=== PATIENT | male | born 1935 | race Caucasian/White ===

== ENCOUNTER 2018-12-26 19:20 | Inpatient (IN) | payer MEDICARE, MEDICAID ==
[~2018-12-26] VITALS: Ht 162.6 cm; Wt 63.0 kg
[2018-12-27] MEDS ORDERED: MAG HYDROX/AL HYDROX/SIMETH 30 ML UDC PO PRN (02:00)
[2018-12-27] MEDS ORDERED: ZOLPIDEM TARTRATE 5 MG TABLET PO PRN (02:00)
[2018-12-27] MEDS ORDERED: MAGNESIUM HYDROXIDE 30 ML UDC PO PRN (02:00)
[2018-12-27] MEDS ORDERED: ACETAMINOPHEN 325 MG TABLET PO PRN (02:00)
--- NOTE | 2018-12-27 02:00 | NUR ---
GPS IOS PROGRAMMER NOTES: ADMITTED AN 83YO MALE FROM [facility] IN [facility] ON [address]150MHOLD FOR DANGER TO SELF. PER HOLD, PATIENT HAS BEEN VERBALIZING ON JINNY SUICIDAL IDEATION AND STATED HE WANTED TO KILL HIMSELF- WITH NO PLAN PROVIDED. PATIENT CONFIRMED THAT HE HAS BEEN EXPERIENCING ON GOING SUICIDAL THOUGHTS FOR SEVERAL DAYS AND IS BECOMING SEVERELY ANXIOUS AND DEPRESSED. PATIENT WILL BE UNDER THE CARE OF DR. MORSE AND RUDY, COLD PATCHER FOR [facility]. PATIENT WAS BROUGHT IN THE UNIT VIA GURNEY BY AMBULANCE STAFF. HE WAS THEN BROUGHT IN THE ROOM AND CHANGED TO A CLEAN PATIENT'S GOWN. UPON FACE TO FACE ASSESSMENT, PATIENT PRESENTS ALERT AND ORIENTED X3-4, APPEARS CALM, COOPERATIVE HOWEVER ADMITS TO BEING DEPRESSED AND WANTING TO KILL HIMSELF. WHEN ASKED OF THE PLAN, PATIENT UNABLE TO SPECIFY.PATIENT THEN MEETS CRITERIA FOR 5150 FOR DANGER TO SELF. BELONGINGS AND CONTRABAND CHECKED. PATIENT HAS BOTTLES OF MEDICATION, SAID MEDICATIONS REPORTED AND PLACED IN A BAG FOR PHARMACY KEEPING- THIS INCLUDES A BOTTLE OF LORAZEPAM 0.5 MG #14 PILLS ON COUNT. PATIENT'S UPPER AND LOWER DENTURES PLACED IN A CUP AT BEDSIDE. PATIENT ALSO HAS THE POSSESSION OF TWO EYEGLASSES AT BEDSIDE., WITH LABEL STICKERS ON IT. ORIENTATION TO UNIT, STAFF, DOCTORS, CARE PLANS AND ACTIVITIES DONE. Q15 MIN CHECKS INITIATED. CARE PLAN STARTED. PATIENT'S RIGHTS DISCUSSED, GUIDE TO PRESCRIPTIONS MEDICATIONS PROVIDED. TOILETRIES PROVIDED. ASKED PATIENT IF HE IS HUNGRY, PATIENT JUST REQUESTED FOR WATER- PROVIDED AT BEDSIDE. WOUND CARE CONSULT PLACED FOR REDNESS ON LEFT BIG TOE AND REDNESS ON LEFT HEEL. PATIENT REQUESTED FOR TYLENOL MEDICATION FOR MILD PAIN- GIVEN PRN MEDICATIONS. SAFETY AND FALL PRECAUTIONS OBSERVED. BED ALARM ACTIVATED. CALL RIBEIRO PROVIDED. WILL INFORM SON- REGARDING ADMISSION IN PHOTOENGRAVING HELPER. WILL COLLECT SPECIMEN FOR MRSA. WILL FOLLOW UP FOR MED RECON. WILL MONITOR PATIENT FOR MOOD, SAFETY AND BEHAVIOR.
[2018-12-27] MEDS ORDERED: AMLO10TA7 PO (02:13)
[2018-12-27] MEDS ORDERED: LORA0.5T PO (02:14)
[2018-12-27] MEDS ORDERED: DULO30CA2 PO (02:16)
[2018-12-27] MEDS ORDERED: PARO10TA86 PO (02:18)
[2018-12-27 02:30] VITALS: BP 160/83
[2018-12-27] MEDS ORDERED: LOSA100T31 PO (04:25)
[2018-12-27] MEDS ORDERED: OMEP40CA37 PO (04:25)
[2018-12-27] MEDS ORDERED: CLON0.1T PO (04:25)
[2018-12-27] MEDS ORDERED: METO25TA6 PO (04:25)
--- NOTE | 2018-12-27 05:46 | NUR ---
gps rn notes: patient noted to have difficulty walking, he has his own shoes with with plastic support as insert. scrap charger requested for a sitter for the patient as he is considered a high fall risk. none can be provided as of this time since the need came in late. will endorse to day shift staff.
[2018-12-27] MEDS: LORAZEPAM 0.5 MG TABLET PO PRN (05:52)
--- NOTE | 2018-12-27 05:57 | NUR ---
gps rn notes: in regards to patient's ambulation and safety reasons , nurse will wait for physical therapist's evaluation regarding ambulation and adl's. will endorse to day shift nurse. Addendum: 12/27/18 at 0601 by CHANDANA SPRINGER patient complained of being anxious. requested for ativan 0.5 mg po - given as ordered. will continue to monitor patient's anxiety level.
[2018-12-27 07:57] LABS: ALANINE AMINOTRANSFERASE 36 U/L (12-78); ALBUMIN 3.6 g/dL (3.4-5.0); ALKALINE PHOSPHATASE 97 U/L (46-116); ASPARTATE AMINOTRANSFERASE 24 U/L (15-37); BILIRUBIN,TOTAL 0.5 mg/dL (0.2-1.0); CALCIUM, SERUM 9.2 mg/dL (8.5-10.1); CARBON DIOXIDE 24 mmol/L (21-32); CHLORIDE 104 mmol/L (98-107); CREATININE 1.6 mg/dL (0.6-1.3); GLUCOSE 106 mg/dL (74-106); POTASSIUM 4.2 mmol/L (3.5-5.1); SODIUM SERUM 140 mmol/L (136-145); TOTAL PROTEIN, SERUM 7.2 g/dL (6.4-8.2); UREA NITROGEN, BLOOD 17 mg/dL (7-18)
[2018-12-27 08:00] VITALS: BP 148/90
[2018-12-27] MEDS: PANTOPRAZOLE 40 MG TABLET.DR PO SCH (09:57)
[2018-12-27] MEDS: LOSARTAN POTASSIUM 50 MG TABLET PO SCH (10:00)
--- NOTE | 2018-12-27 11:38 | NUR ---
WOUND CARE CONSULT: PT PRESENTS WITH AFO BRACE AND ORTHO SHOE TO LEFT LOWER LEG AND FOOT. PT PRESENTS WITH BLANCHABLE REDNESS TO LEFT HEEL AND GREAT TOE, NO TENDERNESS. HEMOSIDERIN STAINING NOTED TO LEFT LOWER LEG. PT IS AMBULATORY AND CONTINENT. WILL SEE PRN.
[2018-12-27] MEDS: VENLAFAXINE XR 37.5 MG CAP.SR.24H PO SCH (12:30)
[2018-12-27 16:00] VITALS: BP 187/99
[2018-12-27] MEDS: METOPROLOL TARTRATE 25 MG TABLET PO SCH (16:09)
[2018-12-27] MEDS: AMLODIPINE BESYLATE 10 MG TABLET PO SCH (16:09)
[2018-12-27] MEDS ORDERED: METOPROLOL TARTRATE 25 MG TABLET PO SCH (17:00)
[2018-12-27] MEDS: CLONIDINE HCL 0.1 MG TABLET PO SCH (17:23)
[2018-12-27 19:43] VITALS: BP 144/79
[2018-12-27] MEDS: QUETIAPINE FUMARATE 25 MG TABLET PO SCH (21:12)
[2018-12-28 07:13] LABS: BASOPHILS % (AUTO) 0.6 % (0.0-2.0); EOSINOPHILS % (AUTO) 3.7 % (0.0-6.0); HEMATOCRIT 35 % (39-51); HEMOGLOBIN 11.8 g/dL (13.5-17.5); LYMPHOCYTES # (AUTO) 1.8 /CMM (0.8-4.8); MEAN CORPUSCULAR HGB CONC 34 g/dl (31.0-36.0); MEAN CORPUSCULAR VOLUME 92 fL (80-96); MONOCYTES # (AUTO) 0.6 /CMM (0.1-1.30); MONOCYTES % (AUTO) 9.2 % (2.0-12.0); NEUTROPHILS # (AUTO) 3.7 /CMM (1.8-8.9); NEUTROPHILS % (AUTO) 58.5 % (43.0-81.0); PLATELET COUNT (AUTO) 166 /CMM (150-450); RED BLOOD CELL COUNT(AUTO) 3.83 MIL/uL (4.5-6.0); WHITE BLOOD COUNT (AUTO) 6.3 K/uL (4.3-11.0)
[2018-12-28 07:27] LABS: CHOLESTEROL 194 mg/dL (<200); CREATINE KINASE, TOTAL 223 U/L (39-308); HDL CHOLESTEROL 30 mg/dL (40-60); LDL 140 mg/dL (0-99); THYROID STIMULATING HORMONE 1.084 uIU/mL (0.358-3.74); TRIGLYCERIDES 118 mg/dL (30-150)
[2018-12-28 07:30] LABS: ALANINE AMINOTRANSFERASE 26 U/L (12-78); ALBUMIN 3.3 g/dL (3.4-5.0); ALKALINE PHOSPHATASE 86 U/L (46-116); ASPARTATE AMINOTRANSFERASE 27 U/L (15-37); BILIRUBIN,TOTAL 0.5 mg/dL (0.2-1.0); CALCIUM, SERUM 8.9 mg/dL (8.5-10.1); CARBON DIOXIDE 27 mmol/L (21-32); CHLORIDE 103 mmol/L (98-107); CREATININE 1.8 mg/dL (0.6-1.3); GLUCOSE 94 mg/dL (74-106); PHOSPHORUS 3.6 mg/dL (2.5-4.9); SODIUM SERUM 139 mmol/L (136-145); TOTAL PROTEIN, SERUM 6.6 g/dL (6.4-8.2); UREA NITROGEN, BLOOD 19 mg/dL (7-18)
[2018-12-28] MEDS: PANTOPRAZOLE 40 MG TABLET.DR PO SCH (07:57)
[2018-12-28 08:00] VITALS: BP 130/73
[2018-12-28] MEDS: METOPROLOL TARTRATE 25 MG TABLET PO SCH ×2 (08:00→17:10)
[2018-12-28] MEDS: VENLAFAXINE XR 37.5 MG CAP.SR.24H PO SCH (08:00)
[2018-12-28] MEDS: LOSARTAN POTASSIUM 50 MG TABLET PO SCH (08:01)
[2018-12-28] MEDS: AMLODIPINE BESYLATE 10 MG TABLET PO SCH (08:01)
[2018-12-28] MEDS ORDERED: DULOXETINE HCL 30 MG CAPSULE.DR PO SCH (09:00)
[2018-12-28] MEDS ORDERED: AMLODIPINE BESYLATE 10 MG TABLET PO SCH (09:00)
--- NOTE | 2018-12-28 10:17 | NUR ---
SW contacted pts son Kishore [phone] to discuss pts treatment plan and discharge plan. Pts son stated that pt will return home once stable for discharge and agrees with pts treatment and medications.
--- NOTE | 2018-12-28 12:01 | NUR ---
INITIAL DISCHARGE PLAN: Pt wishes to return home. Per son Kishore [phone] he wishes for pt to return home to [address] [place] [address]. SW will help form a safe and proper discharge in collaboration with .
[2018-12-28 16:00] VITALS: BP 151/89
[2018-12-28] MEDS: LORAZEPAM 0.5 MG TABLET PO PRN (16:04)
--- NOTE | 2018-12-28 16:05 | NUR ---
NURSING NOTE: PT IN THE HALLWAY, PACING, REQUESTING SOMETHING FOR ANXIETY, STATING "IM FEELING VERY NERVOUS AND ANXIOUS, I NEED SOMETHING TO HELP ME CALM DOWN". ADMINISTERED ATIVAN 0.5MG PO PER MD ORDER. VS: BP 151/89, HR 103. WILL CONTINUE TO MONITOR FOR SAFETY AND BEHAVIOR.
[2018-12-28] MEDS: CLONIDINE HCL 0.1 MG TABLET PO SCH (17:09)
[2018-12-28 20:11] VITALS: BP 109/55
[2018-12-28] MEDS: QUETIAPINE FUMARATE 25 MG TABLET PO SCH (22:17)
[2018-12-29 06:29] LABS: BASOPHILS # (AUTO) 0.1 /CMM (0.0-0.2); BASOPHILS % (AUTO) 1.8 % (0.0-2.0); EOSINOPHILS % (AUTO) 4.9 % (0.0-6.0); HEMATOCRIT 31 % (39-51); HEMOGLOBIN 10.6 g/dL (13.5-17.5); LYMPHOCYTES # (AUTO) 2.6 /CMM (0.8-4.8); LYMPHOCYTES % (AUTO) 41.9 % (20.0-44.0); MEAN CORPUSCULAR HGB CONC 34 g/dl (31.0-36.0); MEAN CORPUSCULAR VOLUME 92 fL (80-96); MONOCYTES # (AUTO) 0.6 /CMM (0.1-1.30); MONOCYTES % (AUTO) 9.6 % (2.0-12.0); NEUTROPHILS # (AUTO) 2.6 /CMM (1.8-8.9); NEUTROPHILS % (AUTO) 41.8 % (43.0-81.0); PLATELET COUNT (AUTO) 146 /CMM (150-450); RED BLOOD CELL COUNT(AUTO) 3.38 MIL/uL (4.5-6.0); WHITE BLOOD COUNT (AUTO) 6.1 K/uL (4.3-11.0)
[2018-12-29 06:42] LABS: ALANINE AMINOTRANSFERASE 36 U/L (12-78); ALBUMIN 3.1 g/dL (3.4-5.0); ALKALINE PHOSPHATASE 77 U/L (46-116); ASPARTATE AMINOTRANSFERASE 34 U/L (15-37); BILIRUBIN,TOTAL 0.5 mg/dL (0.2-1.0); CALCIUM, SERUM 8.5 mg/dL (8.5-10.1); CARBON DIOXIDE 26 mmol/L (21-32); CHLORIDE 104 mmol/L (98-107); GLUCOSE 88 mg/dL (74-106); MAGNESIUM 1.9 mg/dL (1.8-2.4); PHOSPHORUS 4.1 mg/dL (2.5-4.9); POTASSIUM 4.2 mmol/L (3.5-5.1); SODIUM SERUM 138 mmol/L (136-145); TOTAL PROTEIN, SERUM 6.1 g/dL (6.4-8.2); UREA NITROGEN, BLOOD 26 mg/dL (7-18)
[2018-12-29 08:00] VITALS: BP 126/70
[2018-12-29] MEDS: LOSARTAN POTASSIUM 50 MG TABLET PO SCH (08:35)
[2018-12-29] MEDS: PANTOPRAZOLE 40 MG TABLET.DR PO SCH (08:35)
[2018-12-29] MEDS: VENLAFAXINE XR 37.5 MG CAP.SR.24H PO SCH (08:35)
[2018-12-29] MEDS: AMLODIPINE BESYLATE 10 MG TABLET PO SCH (08:36)
[2018-12-29] MEDS: METOPROLOL TARTRATE 25 MG TABLET PO SCH ×2 (08:36→16:51)
--- NOTE | 2018-12-29 11:00 | NUR ---
GPS/RN-NOTES DR. LACEY SEEN THE PATIENT AND AWARE OF PATIENT LAB RESULTS WITH NNO.
[2018-12-29 12:14] LABS: CREATININE, URINE 26.8 MG/DL (30.0-125.0); URINE TOTAL PROTEIN 2.1 mg/dL (0-11.9)
[2018-12-29 12:15] LABS: APPEARANCE,URINE CLEAR (CLEAR); BILIRUBIN,URINE NEGATIVE (NEGATIVE); BLOOD, URINE NEGATIVE Ery/uL (NEGATIVE); KETONES,URINE NEGATIVE (NEGATIVE); LEUKOCYTE ESTERASE ,URINE TRACE (NEGATIVE); NITRITE, URINE NEGATIVE (NEGATIVE); PROTEIN,URINE NEGATIVE (NEGATIVE); UGLUCOSE NEGATIVE (NEGATIVE); UROBILINOGEN,URINE 0.2 EU/dL (0.2)
[2018-12-29 12:34] LABS: COLOR,URINE OTHER (YELLOW)
[2018-12-29 13:15] LABS: BACTERIA,URINE Few /HPF (None Seen); RBC,URINE NONE SEEN /HPF (0-2); SQUAMOUS EPITHELIAL CELL,UR Few /HPF (None Seen); WBC,URINE 0-2 /HPF (0-3)
[2018-12-29 13:20] LABS: EOSINOPHIL,URINE None Seen
--- NOTE | 2018-12-29 13:40 | NUR ---
ALANA contacted pts son Kishore [phone] to inform him pt is requesting he bring him new batteries for his hearing aids. Son stated hew is aware and that he would bring them tomorrow 12/30/18.
[2018-12-29] MEDS: LORAZEPAM 1 MG TABLET PO PRN (15:39)
--- NOTE | 2018-12-29 15:44 | NUR ---
GPS/RN-NOTES PATIENT REQUESTING FOR ATIVAN. STATED" I NEED MY ATIVAN FOR MY ANXIETY, I'M FEEL VERY ANXIOUS". ATIVAN 0.5MG P.O GIVEN PRN ORDER.WILL CONT. MONITORING FOR SAFETY AND BEHAVIOR.
[2018-12-29 16:10] VITALS: BP 138/70
--- NOTE | 2018-12-29 16:40 | NUR ---
GPS/RN-NOTES PATIENT LAYING IN BED AWAKE,ALERT ,CALM NO ACUTE DISTRESS NOTED.
[2018-12-29] MEDS: CLONIDINE HCL 0.1 MG TABLET PO SCH (17:05)
[2018-12-29 19:08] LABS: *SPE A/G RATIO 1.1 (0.7-1.7); *SPE ALBUMIN 3.2 g/dL (2.9-4.4); *SPE ALPHA-1-GLOBULIN 0.2 g/dL (0.0-0.4); *SPE ALPHA-2-GLOBULIN 0.5 g/dL (0.4-1.0); *SPE GLOBULIN, TOTAL 2.8 g/dL (2.2-3.9); *SPE M-SPIKE Not Observed g/dL (Not Observed); PTH, INTACT 72 pg/mL (15-65)
[2018-12-29 20:38] VITALS: BP 148/74
[2018-12-29] MEDS: QUETIAPINE FUMARATE 25 MG TABLET PO SCH (21:26)
[2018-12-30 08:00] VITALS: BP 150/82
[2018-12-30] MEDS: VENLAFAXINE XR 37.5 MG CAP.SR.24H PO SCH (08:31)
[2018-12-30] MEDS: PANTOPRAZOLE 40 MG TABLET.DR PO SCH (08:31)
[2018-12-30] MEDS: METOPROLOL TARTRATE 25 MG TABLET PO SCH ×2 (08:32→16:39)
[2018-12-30] MEDS: AMLODIPINE BESYLATE 10 MG TABLET PO SCH (08:32)
[2018-12-30] MEDS: LORAZEPAM 1 MG TABLET PO PRN ×2 (11:08→17:45)
--- NOTE | 2018-12-30 15:20 | NUR ---
GROUP NOTE: SW prompted pt to attend group discussing the topic of discharge planning, pt refused to participate stating he was feeling very anxious and needed an Ativan.
[2018-12-30 16:00] VITALS: BP 143/80
[2018-12-30] MEDS: CLONIDINE HCL 0.1 MG TABLET PO SCH (17:17)
[2018-12-30] MEDS: TRIAMCINOLONE ACETONIDE 0.1% CR 15 GM TUBE TP SCH (17:17)
[2018-12-30 20:00] VITALS: BP 108/57
[2018-12-30] MEDS: QUETIAPINE FUMARATE 25 MG TABLET PO SCH (21:36)
[2018-12-31 07:33] LABS: BASOPHILS # (AUTO) 0.1 /CMM (0.0-0.2); EOSINOPHILS % (AUTO) 3.5 % (0.0-6.0); HEMATOCRIT 36 % (39-51); LYMPHOCYTES # (AUTO) 2.4 /CMM (0.8-4.8); LYMPHOCYTES % (AUTO) 38.2 % (20.0-44.0); MEAN CORPUSCULAR HGB CONC 33 g/dl (31.0-36.0); MEAN CORPUSCULAR VOLUME 93 fL (80-96); MONOCYTES # (AUTO) 0.6 /CMM (0.1-1.30); MONOCYTES % (AUTO) 9.3 % (2.0-12.0); PLATELET COUNT (AUTO) 157 /CMM (150-450); RED BLOOD CELL COUNT(AUTO) 3.89 MIL/uL (4.5-6.0); WHITE BLOOD COUNT (AUTO) 6.2 K/uL (4.3-11.0)
[2018-12-31 08:00] VITALS: BP 144/76
[2018-12-31 08:03] LABS: ALANINE AMINOTRANSFERASE 38 U/L (12-78); ALBUMIN 3.5 g/dL (3.4-5.0); ALKALINE PHOSPHATASE 86 U/L (46-116); ASPARTATE AMINOTRANSFERASE 24 U/L (15-37); BILIRUBIN,TOTAL 0.5 mg/dL (0.2-1.0); CALCIUM, SERUM 9.2 mg/dL (8.5-10.1); CARBON DIOXIDE 26 mmol/L (21-32); CHLORIDE 105 mmol/L (98-107); CREATININE 1.8 mg/dL (0.6-1.3); GLUCOSE 89 mg/dL (74-106); MAGNESIUM 1.9 mg/dL (1.8-2.4); PHOSPHORUS 3.9 mg/dL (2.5-4.9); POTASSIUM 4.1 mmol/L (3.5-5.1); SODIUM SERUM 141 mmol/L (136-145); UREA NITROGEN, BLOOD 24 mg/dL (7-18)
[2018-12-31] MEDS: PANTOPRAZOLE 40 MG TABLET.DR PO SCH (09:00)
[2018-12-31] MEDS: VENLAFAXINE XR 37.5 MG CAP.SR.24H PO SCH (09:00)
[2018-12-31] MEDS: AMLODIPINE BESYLATE 10 MG TABLET PO SCH (09:00)
[2018-12-31] MEDS: METOPROLOL TARTRATE 25 MG TABLET PO SCH ×2 (09:00→17:18)
[2018-12-31] MEDS: TRIAMCINOLONE ACETONIDE 0.1% CR 15 GM TUBE TP SCH ×2 (09:01→17:17)
--- NOTE | 2018-12-31 14:33 | NUR ---
GROUP NOTE: SW prompted pt to attend group discussing the topic of support systems, pt refused to participate stating he was feeling very anxious and depressed.
[2018-12-31 16:00] VITALS: BP 130/71
[2018-12-31] MEDS: CLONIDINE HCL 0.1 MG TABLET PO SCH (17:20)
[2018-12-31 20:00] VITALS: BP 134/70
[2018-12-31 20:27] VITALS: BP 134/70
[2018-12-31] MEDS: QUETIAPINE FUMARATE 25 MG TABLET PO SCH (21:29)
[2019-01-01 08:00] VITALS: BP 109/73
[2019-01-01] MEDS: VENLAFAXINE XR 37.5 MG CAP.SR.24H PO SCH (08:19)
[2019-01-01] MEDS: AMLODIPINE BESYLATE 10 MG TABLET PO SCH (08:19)
[2019-01-01] MEDS: PANTOPRAZOLE 40 MG TABLET.DR PO SCH (08:19)
[2019-01-01] MEDS: METOPROLOL TARTRATE 25 MG TABLET PO SCH ×2 (08:19→17:53)
[2019-01-01] MEDS: TRIAMCINOLONE ACETONIDE 0.1% CR 15 GM TUBE TP SCH ×2 (08:22→17:54)
[2019-01-01] MEDS: LORAZEPAM 1 MG TABLET PO PRN (08:42)
[2019-01-01] MEDS ORDERED: BISACODYL SUPP (10 MG) 10 MG/SUPP.RECT SUPP.RECT RC PRN (13:00)
[2019-01-01 16:16] VITALS: BP_SYST 107; BP_SYST 138; BP_DIAS 57; BP_DIAS 65
[2019-01-01] MEDS: DOCUSATE SODIUM 250 MG CAPSULE PO SCH (17:52)
[2019-01-01] MEDS: CLONIDINE HCL 0.1 MG TABLET PO SCH (17:53)
[2019-01-01 20:00] VITALS: BP 121/68
[2019-01-01] MEDS: QUETIAPINE FUMARATE 25 MG TABLET PO SCH (21:54)
[2019-01-02 08:00] VITALS: BP 138/62
[2019-01-02] MEDS: PANTOPRAZOLE 40 MG TABLET.DR PO SCH (08:31)
[2019-01-02] MEDS: VENLAFAXINE XR 37.5 MG CAP.SR.24H PO SCH (08:32)
[2019-01-02] MEDS: DOCUSATE SODIUM 250 MG CAPSULE PO SCH ×2 (08:32→17:19)
[2019-01-02] MEDS: TRIAMCINOLONE ACETONIDE 0.1% CR 15 GM TUBE TP SCH ×2 (08:33→17:21)
[2019-01-02] MEDS: METOPROLOL TARTRATE 25 MG TABLET PO SCH ×2 (08:33→17:20)
[2019-01-02] MEDS: AMLODIPINE BESYLATE 10 MG TABLET PO SCH (08:33)
[2019-01-02] MEDS: LORAZEPAM 1 MG TABLET PO PRN (15:19)
[2019-01-02 16:07] VITALS: BP 141/78
[2019-01-02] MEDS: CLONIDINE HCL 0.1 MG TABLET PO SCH (17:20)
[2019-01-02 20:13] VITALS: BP 119/71
[2019-01-02] MEDS: QUETIAPINE FUMARATE 25 MG TABLET PO SCH (21:22)
[2019-01-03 06:46] LABS: BASOPHILS % (AUTO) 0.9 % (0.0-2.0); EOSINOPHILS % (AUTO) 4.9 % (0.0-6.0); HEMATOCRIT 36 % (39-51); LYMPHOCYTES # (AUTO) 1.7 /CMM (0.8-4.8); LYMPHOCYTES % (AUTO) 32.5 % (20.0-44.0); MEAN CORPUSCULAR HGB CONC 33 g/dl (31.0-36.0); MEAN CORPUSCULAR VOLUME 92 fL (80-96); MONOCYTES # (AUTO) 0.5 /CMM (0.1-1.30); MONOCYTES % (AUTO) 9.6 % (2.0-12.0); NEUTROPHILS # (AUTO) 2.7 /CMM (1.8-8.9); NEUTROPHILS % (AUTO) 52.1 % (43.0-81.0); PLATELET COUNT (AUTO) 165 /CMM (150-450); RED BLOOD CELL COUNT(AUTO) 3.92 MIL/uL (4.5-6.0); WHITE BLOOD COUNT (AUTO) 5.2 K/uL (4.3-11.0)
[2019-01-03 06:55] LABS: CALCIUM, SERUM 9.1 mg/dL (8.5-10.1); CARBON DIOXIDE 25 mmol/L (21-32); CHLORIDE 102 mmol/L (98-107); CREATININE 1.8 mg/dL (0.6-1.3); GLUCOSE 95 mg/dL (74-106); MAGNESIUM 2.1 mg/dL (1.8-2.4); PHOSPHORUS 4.4 mg/dL (2.5-4.9); POTASSIUM 4.3 mmol/L (3.5-5.1); SODIUM SERUM 137 mmol/L (136-145); UREA NITROGEN, BLOOD 30 mg/dL (7-18)
[2019-01-03 08:00] VITALS: BP 145/66
[2019-01-03] MEDS: DOCUSATE SODIUM 250 MG CAPSULE PO SCH ×2 (08:35→16:30)
[2019-01-03] MEDS: PANTOPRAZOLE 40 MG TABLET.DR PO SCH (08:35)
[2019-01-03] MEDS: VENLAFAXINE XR 37.5 MG CAP.SR.24H PO SCH (08:35)
[2019-01-03] MEDS: TRIAMCINOLONE ACETONIDE 0.1% CR 15 GM TUBE TP SCH ×2 (08:36→16:36)
[2019-01-03] MEDS: AMLODIPINE BESYLATE 10 MG TABLET PO SCH (08:36)
[2019-01-03] MEDS: METOPROLOL TARTRATE 25 MG TABLET PO SCH ×2 (08:36→16:30)
[2019-01-03] MEDS: busPIRone 5 MG TABLET PO SCH ×3 (10:30→16:30)
--- NOTE | 2019-01-03 15:57 | NUR ---
GROUP NOTE: SW prompted pt to attend group discussing the topic of personal strengths and coping skills, but pt unable to participate in group because he was going to shower.
[2019-01-03 16:00] VITALS: BP 114/71
[2019-01-03] MEDS: CLONIDINE HCL 0.1 MG TABLET PO SCH (17:09)
[2019-01-03 19:59] VITALS: BP 142/74
[2019-01-03] MEDS: QUETIAPINE FUMARATE 25 MG TABLET PO SCH (21:23)
[2019-01-04 08:00] VITALS: BP 142/68
[2019-01-04] MEDS: DOCUSATE SODIUM 250 MG CAPSULE PO SCH ×2 (09:05→16:59)
[2019-01-04] MEDS: AMLODIPINE BESYLATE 10 MG TABLET PO SCH (09:05)
[2019-01-04] MEDS: busPIRone 5 MG TABLET PO SCH ×3 (09:05→17:00)
[2019-01-04] MEDS: PANTOPRAZOLE 40 MG TABLET.DR PO SCH (09:05)
[2019-01-04] MEDS: VENLAFAXINE XR 37.5 MG CAP.SR.24H PO SCH (09:06)
[2019-01-04] MEDS: METOPROLOL TARTRATE 25 MG TABLET PO SCH ×2 (09:06→17:00)
[2019-01-04] MEDS: TRIAMCINOLONE ACETONIDE 0.1% CR 15 GM TUBE TP SCH ×2 (09:08→16:59)
--- NOTE | 2019-01-04 09:58 | NUR ---
ALANA contacted pts son Kishore [phone] to discuss pts discharge for Thursday01/08/19, son stated that he will be picking pt up at 12:00 and transporting home. Son agrees with discharge and states he feels pt is doing much better and is ready to return home.
--- NOTE | 2019-01-04 10:45 | NUR ---
ALANA received a call from pts son Kishore [phone] requesting discharge for Thursday01/07/19 at 11:00am instead of Thursday, ALANA informed him that she would notify psychiatrist but presumed there would not be a problem.
--- NOTE | 2019-01-04 15:35 | NUR ---
GROUP NOTE: SW prompted pt to attend group on 01/04/19 at 2:00pm discussing the topic of goal setting for while they are in the hospital and after discharge, but pt was sleeping and not easily aroused.
[2019-01-04 16:00] VITALS: BP 150/82
--- NOTE | 2019-01-04 17:30 | NUR ---
STATES ANXIOUS AND WANTS ATIVAN,BUT STATES RELAXED AFTER BUSPAR.
[2019-01-04] MEDS: CLONIDINE HCL 0.1 MG TABLET PO SCH (18:20)
[2019-01-04 20:24] VITALS: BP 153/78
[2019-01-04] MEDS: QUETIAPINE FUMARATE 25 MG TABLET PO SCH (21:04)
[2019-01-05] MEDS: LORAZEPAM 1 MG TABLET PO PRN (01:57)
[2019-01-05 08:00] VITALS: BP 153/84
[2019-01-05] MEDS: PANTOPRAZOLE 40 MG TABLET.DR PO SCH (08:54)
[2019-01-05] MEDS: METOPROLOL TARTRATE 25 MG TABLET PO SCH ×2 (08:54→17:58)
[2019-01-05] MEDS: VENLAFAXINE XR 37.5 MG CAP.SR.24H PO SCH (08:54)
[2019-01-05] MEDS: busPIRone 5 MG TABLET PO SCH ×3 (08:55→17:59)
[2019-01-05] MEDS: TRIAMCINOLONE ACETONIDE 0.1% CR 15 GM TUBE TP SCH ×2 (08:55→17:59)
[2019-01-05] MEDS: DOCUSATE SODIUM 250 MG CAPSULE PO SCH ×2 (08:55→17:59)
[2019-01-05] MEDS: AMLODIPINE BESYLATE 10 MG TABLET PO SCH (08:55)
--- NOTE | 2019-01-05 09:20 | NUR ---
SW received a call from pts son Kishore [phone] confirming pts discharge on 01/07/19 at 11:00am.
--- NOTE | 2019-01-05 13:34 | NUR ---
GROUP NOTE: SW prompted pt to attend group on 01/05/19 at 12:30pm discussing stress management techniques for while they are in the hospital and after discharge, but pt was sleeping and not easily aroused.
[2019-01-05 16:53] VITALS: BP 127/69
--- NOTE | 2019-01-05 18:30 | NUR ---
BP ELEVATED IN ARACELY.METOPROLOL AND CATAPRES GIVEN.
[2019-01-05] MEDS: CLONIDINE HCL 0.1 MG TABLET PO SCH (19:11)
[2019-01-05 20:00] VITALS: BP 139/73
[2019-01-05] MEDS: QUETIAPINE FUMARATE 25 MG TABLET PO SCH (21:05)
[2019-01-06 08:00] VITALS: BP 149/75
[2019-01-06] MEDS: METOPROLOL TARTRATE 25 MG TABLET PO SCH ×2 (09:05→17:43)
[2019-01-06] MEDS: busPIRone 5 MG TABLET PO SCH ×3 (09:05→17:42)
[2019-01-06] MEDS: VENLAFAXINE XR 37.5 MG CAP.SR.24H PO SCH (09:05)
[2019-01-06] MEDS: PANTOPRAZOLE 40 MG TABLET.DR PO SCH (09:06)
[2019-01-06] MEDS: AMLODIPINE BESYLATE 10 MG TABLET PO SCH (09:06)
[2019-01-06] MEDS: DOCUSATE SODIUM 250 MG CAPSULE PO SCH ×2 (09:06→17:42)
[2019-01-06] MEDS: TRIAMCINOLONE ACETONIDE 0.1% CR 15 GM TUBE TP SCH ×2 (09:07→17:42)
[2019-01-06] MEDS: LORAZEPAM 1 MG TABLET PO PRN (12:53)
[2019-01-06 16:00] VITALS: BP 152/77
[2019-01-06] MEDS: CLONIDINE HCL 0.1 MG TABLET PO SCH (17:45)
[2019-01-06 20:29] VITALS: BP 124/67
[2019-01-06] MEDS: QUETIAPINE FUMARATE 25 MG TABLET PO SCH (21:11)
[2019-01-07 08:00] VITALS: BP 123/61
--- NOTE | 2019-01-07 08:00 | NUR ---
RECEIVED PATIENT RESTING IN BED, ALERT X3, NO APPARENT DISTRESS NOTED. PATIENT AMBULATORY WITH WALKER. PLEASANT WITH STAFF.COMPLIANT WITH DAILY MEDICATIONS.NEEDS ATTENDED AND ANTICIPATED.WILL CONTINUE MONITORING Q15 MINS. FOR SAFETY AND BEHAVIOR.
--- NOTE | 2019-01-07 08:29 | NUR ---
DISCHARGE NOTE: Pt will be discharging at 11:00am via private vehicle [id number] [place] [address]. Pts son Kishore [phone] will be picking pt up and transporting home. Pts mood is euthymic with congruent affect. Pt denied visual/auditory hallucinations and denied suicidal/homicidal ideation. Pt has a follow up appointment with Psychiatrist: Dr. Jose L Watson Address: [address] [place] [address] on January 10, 2019 at 1000. faxed clinical information to . Pt will also follow up with Loan Inspector: Dr. Bharathi Dalal Address: [address] [place] [address] . The multidisciplinary exit care form was done, printed, signed, and given to the patient.
[2019-01-07] MEDS: METOPROLOL TARTRATE 25 MG TABLET PO SCH (08:58)
[2019-01-07] MEDS: DOCUSATE SODIUM 250 MG CAPSULE PO SCH (08:58)
[2019-01-07] MEDS: busPIRone 5 MG TABLET PO SCH (08:58)
[2019-01-07 08:59] VITALS: BP 123/61
[2019-01-07] MEDS: PANTOPRAZOLE 40 MG TABLET.DR PO SCH (08:59)
[2019-01-07] MEDS: AMLODIPINE BESYLATE 10 MG TABLET PO SCH (08:59)
[2019-01-07] MEDS: TRIAMCINOLONE ACETONIDE 0.1% CR 15 GM TUBE TP SCH (09:02)
[2019-01-07] MEDS: VENLAFAXINE XR 37.5 MG CAP.SR.24H PO SCH (09:02)
[2019-01-07] MEDS: LORAZEPAM 1 MG TABLET PO PRN (09:23)
--- NOTE | 2019-01-07 12:00 | NUR ---
DISCHARGE PT HOME WITH BELONGINGS ACCOMPANIED BY HIS SON.DISCHARGE INSTRUCTIONS AND PRESCRIPTION GIVEN TO THE PT.DISCHARGE WITH STABLE V/S.DENIES ANY PAIN OR DISTRESS.
== END 2019-01-07 12:00 | disposition home or self-care (01) | DRG 885 ==
LOC: GPS 12-27 01:28
PROVIDERS: ADMIT Psychiatry & Neurology Psychiatry; ATTEND Nurse Practitioner Acute Care
DX: F33.3 Major depressive disorder, recurrent, severe with psychotic symptoms (principal); N17.9 Acute kidney failure, unspecified; N18.9 Chronic kidney disease, unspecified; N13.30 Unspecified hydronephrosis; F41.9 Anxiety disorder, unspecified; E78.5 Hyperlipidemia, unspecified; K21.9 Gastro-esophageal reflux disease without esophagitis; K59.00 Constipation, unspecified; I12.9 Hypertensive chronic kidney disease with stage 1 through stage 4 chronic kidney disease, or unspecified chronic kidney disease
CPT/HCPCS: 36415; 76770-TC; 80048-TC; 80053-TC; 80061-TC; 81000-TC; 82550-TC; 82570-TC; 83735-TC; 83970; 84100-TC; 84155; 84155-TC; 84165; 84300-TC; 84443-TC; 85025-TC; 87081-TC; 97116-TC; 97530-TC